=== PATIENT | female | born 1960 | race American Indian/Alaskan Native ===

== ENCOUNTER 2018-04-05 18:32 | Emergency (ER) | payer MEDICAID ==
[2018-04-05] MEDS ORDERED: Albuterol-Ipratrop 3 mg / 0.5 (3 ml) UD INH STA (19:38)
--- NOTE | 2018-04-05 19:39 | ED PDOC ---
HPI: Chest Pain Time Seen by Provider: 04/05/18 19:09 Chief Complaint (Nursing): Chest Pain History Per: Patient History/Exam Limitations: no limitations Onset/Duration Of Symptoms: Days Current Symptoms Are (Timing): Still Present Additional Complaint(s): Hx of HTN, Schizoaffective Disorder, Bipolar Disorder, HLD, COPD, brought in by [employer] under arrest for evaluation of high blood pressure and chest pressure, states that earlier today her blood pressure was over 200 systolic and she's been having chest pressure since yesterday. States she is also wheezing and hasn't used her inhaler. States she thinks she has "pneumonia" because of coughing today, but no fevers, chills, sweats, weight loss. PMD: Dr. Ramirez Past Medical History Reviewed: Historical Data, Nursing Documentation, Vital Signs Vital Signs: Last Vital Signs Temp 97.6 F 04/05/18 18:34 Pulse 56 L 04/05/18 18:54 Resp 19 04/05/18 18:54 BP 158/90 H 04/05/18 18:54 Pulse Ox 100 04/05/18 18:54 - Medical History PMH: Asthma, Back Problems (Herniated Disc, Sciatica), Bipolar Disorder, COPD, Depression, HTN, Hypercholesterolemia, Schizophrenia, Chronic Pain (Back) Denies: Diabetes, Hepatitis, HIV, Chronic Kidney Disease, Seizures, Sexually Transmitted Disease - Family History Family History: States: Unknown Family Hx - Immunization History Hx Tetanus Toxoid Vaccination: Yes Hx Influenza Vaccination: No Hx Pneumococcal Vaccination: No - Home Medications Home Medications: Ambulatory Orders Medication Instructions Recorded Alprazolam [Xanax] 2 mg PO BID 01/27/15 Oxycodone Hydrochloride [Oxycodone] 30 mg PO TID 01/27/15 Atorvastatin [Lipitor] 20 mg PO DAILY 09/27/15 Hydrochlorothiazide [HCTZ] 25 mg PO DAILY 09/27/15 cloNIDine [Catapres] 0.3 mg PO TID 09/27/15 Albuterol HFA [Ventolin HFA 90 2 puff IH [id number] PRN #1 inhaler 05/27/16 mcg/actuation (8 g)] Azithromycin [Zithromax Tri-Aristides] 500 mg PO DAILY #3 tablet 05/27/16 Prednisone [Deltasone] 3 tab PO DAILY #12 tablet 05/27/16 PARoxetine [Paxil] 20 mg PO DAILY #30 tab 11/28/17 QUEtiapine [SEROquel] 200 mg PO HS #30 tab 11/28/17 traZODone [Desyrel] 50 mg PO HS PRN #30 tab 11/28/17 Albuterol Sulfate [Ventolin Hfa] 1 puff IH Q4 PRN #1 ml 04/06/18 hydroCHLOROthiazide [Hydrodiuril] 25 mg PO DAILY #30 tab 04/06/18 - Allergies Allergies/Adverse Reactions: Allergies Allergy/AdvReac Type Severity Reaction Status Date / Time No Known Allergies Allergy Verified 04/05/18 18:34 MAXIME Risk Score for UA/NSTEMI - MAXIME Risk Score Age > 64: NO 3 or more CAD Risk Factors: NO Known CAD (Stenosis greater than 50%): NO Aspirin use in past 7 days: NO Severe Angina: NO EKG ST changes greater than 0.5mm: NO Positive Cardiac Marker: NO MAXIME Score: 0 Risk %: 5% Curb-65 Severity Score - CURB-65 Severity Score Confusion: No Bun >19mg/dl (>7mmol/L): No Respiratory Rate greater than/equal to 30: No Systolic BP <90 or Diastolic BP less than/equal 60mmHg: No Age >64: No Curb-65 Score: 0 Percentage 30-day mortality: 0.6% Review of Systems ROS Statement: Except As Marked, All Systems Reviewed And Found Negative Cardiovascular: Positive for: Chest Pain Respiratory: Positive for: Cough, Shortness of Breath Physical Exam - Reviewed Nursing Documentation Reviewed: Yes Vital Signs Reviewed: Yes - Physical Exam Appears: Positive for: Well (Very well appearing, sitting up eating an entire meal tray), Non-toxic, No Acute Distress Head Exam: Positive for: ATRAUMATIC, NORMAL INSPECTION, NORMOCEPHALIC Skin: Positive for: Normal Color, Warm, DRY Eye Exam: Positive for: EOMI, Normal appearance, PERRL ENT: Positive for: Normal ENT Inspection Neck: Positive for: Normal, Painless ROM Cardiovascular/Chest: Positive for: Regular Rate, Rhythm Respiratory: Positive for: Wheezing. Negative for: Stridor, Respiratory Distress Gastrointestinal/Abdominal: Positive for: Normal Exam, Soft Back: Positive for: Normal Inspection Extremity: Positive for: Normal ROM Neurologic/Psych: Positive for: Alert, Oriented - Laboratory Results Result Diagrams: 04/05/18 20:32 04/05/18 20:32 - ECG ECG Rhythm: Positive for: Normal QRS, Normal ST Segment, Nonspecific Changes Rate: 56 O2 Sat by Pulse Oximetry: 100 Pulse Ox Interpretation: Normal Medical Decision Making Medical Decision MakinPM Patient presenting with chest pressure and elevated blood pressure secondary to medication non-compliance --Patient is extremely well appearing at this time, no distress --Patient's BP is normalizing spontaneously --Will check labs including troponin for risk stratification purposes --DDx: COPD exacerbation, costochondritis, less likely ACS or PNA amongts others not listed 945PM --Workup negative, advised patient to followup as outpatient --Will prescribe HCTZ and Albuterol --Very well appearing with stable vitals upon discharge Disposition - Clinical Impression Clinical Impression: HTN (hypertension) - Patient ED Disposition Is Patient to be Admitted: No - Disposition Referrals: Mame Ramirez MD [Staff Provider] - Disposition: Routine/Home Disposition Time: 21:45 Condition: STABLE Additional Instructions: Patient is medically and psychiatrically cleared for incarceration. Prescriptions: Albuterol Sulfate [Ventolin Hfa] 1 puff IH Q4 PRN #1 ml PRN Reason: Wheezing hydroCHLOROthiazide [Hydrodiuril] 25 mg PO DAILY #30 tab Instructions: High Blood Pressure in Adults, Low Salt Diet Forms: [employer] ([employer])
[2018-04-05] MEDS ORDERED: Albuterol-Ipratrop 3 mg / 0.5 (3 ml) UD ONE (20:03)
[2018-04-05 20:39] LABS: HEMOGLOBIN 12.5 g/dL (12.0-16.0); MEAN CORPUSCULAR HEMOGLOBIN 26.3 pg (27.0-31.0); MEAN CORPUSCULAR HGB CONC 32.1 g/dL (33.0-37.0); RBC 4.77 Mil/uL (3.80-5.20); WHITE BLOOD COUNT 11.2 K/uL (4.8-10.8)
[2018-04-05 20:46] LABS: BLOOD UREA NITROGEN 11 mg/dl (7-17); GFR NON-AFRICAN AMERICAN 42
[2018-04-05 21:03] LABS: BARBITURATES, UR NEGATIVE (NEGATIVE); BENZODIAZEPINES, UR NEGATIVE (NEGATIVE); OPIATES, UR POSITIVE (NEGATIVE); PHENCYCLIDINE, UR NEGATIVE (NEGATIVE)
[2018-04-05 21:06] VITALS: RESP 18
[2018-04-05 22:37] VITALS: TEMP 98.2
[2018-04-06 02:36] VITALS: BP 133/49
[2018-04-06 05:58] VITALS: PULSE 56; O2SAT 100
--- NOTE | 2018-04-06 10:56 | RAD ---
Date of service: 04/05/2018 HISTORY: chest pressure COMPARISON: 05/27/2016 TECHNIQUE: Chest PA and lateral FINDINGS: LUNGS: No focal infiltrate seen. Mild nonspecific chronic interstitial changes and scarring. Mild bibasilar volume loss is also noted.. PLEURA: No significant pleural effusion identified. No pneumothorax apparent. CARDIOVASCULAR: Normal. OSSEOUS STRUCTURES: No significant abnormalities. VISUALIZED UPPER ABDOMEN: Normal. OTHER FINDINGS: None. IMPRESSION: No evidence of focal infiltrate. Nonspecific interstitial change and bilateral mild subsegmental atelectasis or volume loss.
== END 2018-04-06 01:20 ==
LOC: H.ER 18:32
DX: I10 Essential (primary) hypertension (principal); Z86.59 Personal history of other mental and behavioral disorders; G89.29 Other chronic pain; J44.9 Chronic obstructive pulmonary disease, unspecified; R07.89 Other chest pain